=== PATIENT | male | born 1980 | race Caucasian/White ===

== ENCOUNTER 2020-03-11 15:33 | Emergency (ER) | payer OTHER | END 2020-03-11 19:12 | disposition home or self-care (01) | LOC: ER1 15:33 | DX: S39.012A Strain of muscle, fascia and tendon of lower back, initial encounter (principal); S00.03XA Contusion of scalp, initial encounter; V49.50XA Passenger injured in collision with unspecified motor vehicles in traffic accident, initial encounter; Y92.410 Unspecified street and highway as the place of occurrence of the external cause | CPT/HCPCS: 70450; 99283 ==